=== PATIENT | female | born 1980 | race Two or more races ===

== ENCOUNTER 2021-10-26 13:47 | Emergency (ER) | payer MEDICAID ==
[2021-10-26] MEDS ORDERED: Morphine 4 MG/ML VIAL IVPUSH ONE (14:04)
[2021-10-26] MEDS ORDERED: Ondansetron 4 MG/2 ML SDV IVPUSH ONE (14:04)
[2021-10-26] MEDS ORDERED: Sodium Chloride 0.9% 1,000 ML IV ONE (14:04)
[2021-10-26] MEDS ORDERED: Famotidine 20 MG/2 ML SDV IVPUSH ONE (14:04)
[2021-10-26] MEDS ORDERED: Alum Hydro/Mag Hydro/Simeth XS 15 ML, Lidocaine 2% 5 ML PO ONE ×2 (14:06)
[2021-10-26 14:29] LABS: CARBON DIOXIDE,CO2 24.7 mmol/L (21.0-32.0); POTASSIUM,K 4.1 mmol/L (3.5-5.1)
== END 2021-10-26 15:34 | disposition home or self-care (01) ==
LOC: MW.ED 13:47
DX: R10.13 Epigastric pain (principal); E11.9 Type 2 diabetes mellitus without complications; I10 Essential (primary) hypertension; E78.00 Pure hypercholesterolemia, unspecified; E66.9 Obesity, unspecified; Z68.41 Body mass index [BMI] 40.0-44.9, adult; Z88.0 Allergy status to penicillin; Z86.16 Personal history of COVID-19
CPT/HCPCS: 36415; 80053; 82009; 82947; 83605; 83690; 83735; 84484; 84703; 85025; 93005; 96361; 96374; 96375; 99284; A9270; J2270; J2405; J3490; J7030

== ENCOUNTER 2021-10-29 13:03 | Emergency (ER) | payer MEDICAID ==
[2021-10-29] MEDS: Alum Hydro/Mag Hydro/Simeth XS 15 ML, Metoclopramide 5 MG, Lidocaine 2% 5 ML PO ONE ×3 (13:49)
[2021-10-29] MEDS: Famotidine 20 MG Tab PO ONE (13:49)
[2021-10-29] MEDS: Dicyclomine 10 MG Cap PO ONE (13:49)
[2021-10-29 14:40] LABS: CARBON DIOXIDE,CO2 26.4 mmol/L (21.0-32.0); POTASSIUM,K 4.8 mmol/L (3.5-5.1)
[2021-10-29] MEDS: Haloperidol Lactate 5 MG/ML SDV IM ONE (14:47)
== END 2021-10-29 15:48 | disposition home or self-care (01) ==
LOC: MW.ED 13:03
DX: R10.13 Epigastric pain (principal); E78.00 Pure hypercholesterolemia, unspecified; I10 Essential (primary) hypertension; E11.9 Type 2 diabetes mellitus without complications; Z88.0 Allergy status to penicillin; Z79.899 Other long term (current) drug therapy; Z86.16 Personal history of COVID-19
CPT/HCPCS: 36415; 80053; 83690; 84703; 85025; 96372; 99284; A9270; J1630; 99283

== ENCOUNTER 2022-03-02 12:08 | Emergency (ER) | payer MEDICAID ==
[2022-03-02] MEDS ORDERED: Ketorolac 60 MG/2 ML SDV IM ONE (13:02)
== END 2022-03-02 13:27 | disposition home or self-care (01) ==
LOC: MW.ED 12:08
DX: M72.2 Plantar fascial fibromatosis (principal); I10 Essential (primary) hypertension; E11.9 Type 2 diabetes mellitus without complications; Z88.0 Allergy status to penicillin; Z79.899 Other long term (current) drug therapy; Z90.49 Acquired absence of other specified parts of digestive tract
CPT/HCPCS: 96372; 99283; J1885

== ENCOUNTER 2022-03-09 05:30 | Emergency (ER) | payer MEDICAID ==
[2022-03-09] MEDS ORDERED: Sodium Chloride 0.9% 1,000 ML IV ONE (05:41)
[2022-03-09] MEDS ORDERED: Ondansetron 4 MG/2 ML SDV IVPUSH ONE (05:58)
[2022-03-09] MEDS ORDERED: Morphine 4 MG/ML Syringe IVPUSH ONE (05:58)
[2022-03-09] MEDS ORDERED: Ondansetron 4 MG/2 ML SDV ONE (05:59)
[2022-03-09] MEDS ORDERED: Morphine 4 MG/ML Syringe ONE (05:59)
[2022-03-09] MEDS ORDERED: Alum Hydro/Mag Hydro/Simeth XS 15 ML, Metoclopramide 5 MG, Lidocaine 2% 5 ML PO ONE ×3 (06:34)
[2022-03-09] MEDS ORDERED: Pantoprazole 40 MG Tab.CR PO STA (06:34)
[2022-03-09 06:54] LABS: CARBON DIOXIDE,CO2 25.6 mmol/L (21.0-32.0); POTASSIUM,K 3.8 mmol/L (3.5-5.1)
[2022-03-09 07:06] LABS: CORONAVIRUS COVID-19 NAA POSITIVE (NEGATIVE); INFLUENZA A NAA NEGATIVE (NEGATIVE); INFLUENZA B NAA NEGATIVE (NEGATIVE); RESPIRATORY SYNCYTIAL VIR NAA NEGATIVE (NEGATIVE)
[2022-03-09] MEDS ORDERED: Lisinopril 10 MG Tab PO ONE (07:39)
== END 2022-03-09 08:05 | disposition home or self-care (01) ==
LOC: MW.ED 05:30
DX: K29.70 Gastritis, unspecified, without bleeding (principal); I10 Essential (primary) hypertension; E78.00 Pure hypercholesterolemia, unspecified; E11.9 Type 2 diabetes mellitus without complications; Z86.16 Personal history of COVID-19; Z88.0 Allergy status to penicillin; Z79.899 Other long term (current) drug therapy; Z20.822 Contact with and (suspected) exposure to COVID-19
CPT/HCPCS: 0241U; 36415; 80053; 83605; 83690; 84703; 85025; 96361; 96374; 96375; 99284; A9270; J2270; J2405; J7030

== ENCOUNTER 2022-06-24 03:40 | Emergency (ER) | payer OTHER, MEDICAID ==
[2022-06-24] MEDS ORDERED: Sodium Chloride 0.9% 10 ML Syringe FLUSH PRN (04:37)
[2022-06-24] MEDS ORDERED: Sodium Chloride 0.9% 2.5 ML Syringe FLUSH PRN (04:37)
[2022-06-24] MEDS ORDERED: Sodium Chloride 0.9% 1,000 ML IV ONE (05:01)
[2022-06-24] MEDS ORDERED: Metoclopramide 10 MG/2 ML SDV IVPUSH ONE (05:01)
[2022-06-24 05:35] LABS: CARBON DIOXIDE,CO2 24.5 mmol/L (21.0-32.0); POTASSIUM,K 4.8 mmol/L (3.5-5.1)
== END 2022-06-24 06:30 | disposition home or self-care (01) ==
LOC: MW.ED 03:40
DX: R11.10 Vomiting, unspecified (principal); R19.7 Diarrhea, unspecified; R10.9 Unspecified abdominal pain; E78.00 Pure hypercholesterolemia, unspecified; I10 Essential (primary) hypertension; J45.909 Unspecified asthma, uncomplicated; E11.9 Type 2 diabetes mellitus without complications; Z86.16 Personal history of COVID-19; Z88.0 Allergy status to penicillin; Z79.899 Other long term (current) drug therapy; Z90.49 Acquired absence of other specified parts of digestive tract; Z98.890 Other specified postprocedural states
CPT/HCPCS: 36415; 80053; 80305; 81001; 81025; 83690; 85025; 96361; 96374; 99284; J2765; J7030; 99283

== ENCOUNTER 2022-06-24 08:44 | Emergency (ER) | payer OTHER, MEDICAID ==
[2022-06-24] MEDS ORDERED: Sodium Chloride 0.9% 1,000 ML IV ONE (09:20)
[2022-06-24] MEDS ORDERED: Haloperidol Lactate 5 MG/ML SDV IM ONE (09:20)
[2022-06-24] MEDS ORDERED: Famotidine 20 MG/2 ML SDV IVPUSH ONE (09:23)
[2022-06-24] MEDS ORDERED: Alum Hydro/Mag Hydro/Simeth XS 15 ML, Lidocaine 2% 5 ML PO ONE ×2 (10:26)
[2022-06-24] MEDS ORDERED: Iopamidol 755 MG/ML 500 ML Multipack Bottle IVPUSH STA (10:27)
[2022-06-24] MEDS ORDERED: Morphine 4 MG/ML Syringe IVPUSH ONE (10:36)
[2022-06-24 11:46] LABS: HEMOGLOBIN A1C 8.8 %
[2022-06-24 11:57] LABS: CARBON DIOXIDE,CO2 24.4 mmol/L (21.0-32.0); POTASSIUM,K 4.3 mmol/L (3.5-5.1)
== END 2022-06-24 12:35 | disposition home or self-care (01) ==
LOC: MW.ED 08:44
DX: E11.9 Type 2 diabetes mellitus without complications (principal); I10 Essential (primary) hypertension; J45.909 Unspecified asthma, uncomplicated; E78.00 Pure hypercholesterolemia, unspecified; E66.9 Obesity, unspecified; Z68.42 Body mass index [BMI] 45.0-49.9, adult; Z86.16 Personal history of COVID-19; Z79.84 Long term (current) use of oral hypoglycemic drugs; Z79.899 Other long term (current) drug therapy; Z88.0 Allergy status to penicillin; Z90.49 Acquired absence of other specified parts of digestive tract; Z98.890 Other specified postprocedural states
CPT/HCPCS: 36415; 74177; 80053; 80305; 81001; 81025; 82009; 83036; 83690; 83735; 85025; 93005; 96361; 96372; 96374; 96375; 99284; 99285; A9270; J1630; J2270; J2765; J3490; J7030; Q9967; 93010; 99283

== ENCOUNTER 2022-09-27 22:02 | Emergency (ER) | payer OTHER, MEDICAID | END 2022-09-27 22:30 | disposition left against medical advice (07) | LOC: MW.ED 22:02 | DX: Z53.21 Procedure and treatment not carried out due to patient leaving prior to being seen by health care provider (principal) ==

== ENCOUNTER 2022-11-06 02:28 | Emergency (ER) | payer MEDICAID, OTHER ==
[2022-11-06] MEDS ORDERED: Morphine 4 MG/ML Syringe IVPUSH ONE ×2 (02:39→03:14)
[2022-11-06] MEDS ORDERED: Ondansetron 4 MG/2 ML SDV IVPUSH ONE (02:39)
[2022-11-06] MEDS ORDERED: Iopamidol 755 MG/ML 500 ML Multipack Bottle IVPUSH ONE (02:46)
[2022-11-06 02:53] LABS: BASOPHILS PERCENT AUTO 0.3 % (0.0-1.5); EOSINOPHILS ABSOLUTE AUTO 0.3 K/uL (0.0-0.7); EOSINOPHILS PERCENT AUTO 3.6 % (0.0-7.0); HEMATOCRIT 44.2 % (36.0-46.0); HEMOGLOBIN 14.6 g/dL (12.0-16.0); LYMPHOCYTES ABSOLUTE AUTO 1.7 K/uL (0.6-2.4); LYMPHOCYTES PERCENT AUTO 24.9 % (16.0-40.0); MEAN CORPUSCULAR HEMOGLOBIN 26.5 pg (27.0-32.0); MEAN CORPUSCULAR VOLUME 80.2 fL (80.0-98.0); MONOCYTES ABSOLUTE AUTO 0.4 K/uL (0.0-0.8); NEUTROPHILS ABSOLUTE AUTO 4.6 K/uL (1.4-5.7); NEUTROPHILS PERCENT AUTO 66.2 % (48.0-80.0); NRBC ABSOLUTE 0 K/uL; RED BLOOD CELL COUNT 5.51 M/uL (4.30-5.90); WHITE BLOOD CELL COUNT,WBC 6.96 K/uL (4.0-11.0)
[2022-11-06] MEDS ORDERED: Metoclopramide 10 MG/2 ML SDV IVPUSH ONE (03:14)
[2022-11-06 03:18] LABS: A/G RATIO 0.9 (0.9-1.6); BILIRUBIN TOTAL 0.5 mg/dL (0.2-1.0); CALCIUM 9.2 mg/dL (8.5-10.1); CARBON DIOXIDE,CO2 25.8 mmol/L (21.0-32.0); CREATININE 0.7 mg/dL (0.6-1.0); EST CRCL DRUG DOSING (CG) 93.25 mL/min; POTASSIUM,K 4.6 mmol/L (3.5-5.1); PROTEIN TOTAL,TP 8.6 g/dL (6.4-8.2)
[2022-11-06 03:27] LABS: PLATELET COUNT,PLT 139 K/uL (150-400)
[2022-11-06] MEDS ORDERED: droPERidol 5 MG/2 ML SDV IVPUSH ONE (04:40)
== END 2022-11-06 06:09 | disposition home or self-care (01) ==
LOC: MW.ED 02:28
DX: R10.11 Right upper quadrant pain (principal); R11.2 Nausea with vomiting, unspecified; I10 Essential (primary) hypertension; J45.909 Unspecified asthma, uncomplicated; E11.9 Type 2 diabetes mellitus without complications; Z88.6 Allergy status to analgesic agent; Z88.0 Allergy status to penicillin; Z86.16 Personal history of COVID-19
CPT/HCPCS: 36415; 74177; 80053; 83690; 85025; 96374; 96375; 96376; 99284; J1790; J2270; J2405; J2765; Q9967

== ENCOUNTER 2023-03-20 13:39 | Emergency (ER) | payer MEDICAID ==
[2023-03-20] MEDS ORDERED: Sodium Chloride 0.9% 1,000 ML IV ONE (13:50)
[2023-03-20 14:25] LABS: BASOPHILS ABSOLUTE AUTO 0.06 K/uL (0.00-0.20); BASOPHILS PERCENT AUTO 0.6 % (0.0-1.0); EOSINOPHILS ABSOLUTE AUTO 0.09 K/uL (0.00-0.45); EOSINOPHILS PERCENT AUTO 0.9 % (0.0-6.0); HEMATOCRIT 44.1 % (37.0-47.0); HEMOGLOBIN 14.5 g/dL (12.0-16.0); IMMATURE GRAN ABSOLUTE AUTO 0.08 K/uL (0.00-0.05); IMMATURE GRAN PERCENT AUTO 0.8 % (0.0-0.4); LYMPHOCYTES ABSOLUTE AUTO 1.39 K/uL (1.00-4.80); LYMPHOCYTES PERCENT AUTO 13.4 % (24.0-44.0); MEAN CORPUSCULAR HEMOGLOBIN 26.7 pg (28.0-32.0); MEAN CORPUSCULAR HGB CONC 32.9 g/dL (32.0-36.0); MEAN CORPUSCULAR VOLUME 81.1 fL (83.0-99.0); MEAN PLATELET VOLUME 9.3 fL (9.4-12.3); MONOCYTES ABSOLUTE AUTO 0.34 K/uL (0.00-0.80); MONOCYTES PERCENT AUTO 3.3 % (0.0-8.0); PLATELET COUNT,PLT 355 K/uL (150-400); RED BLOOD CELL COUNT 5.44 M/uL (4.10-5.30); WHITE BLOOD CELL COUNT,WBC 10.36 K/uL (3.9-11.3)
[2023-03-20 14:44] LABS: A/G RATIO 0.8 (0.9-1.6); ALBUMIN 3.7 g/dL (3.4-5.0); BILIRUBIN TOTAL 0.2 mg/dL (0.2-1.0); CALCIUM 8.7 mg/dL (8.5-10.1); CREATININE 0.8 mg/dL (0.6-1.0); EST CRCL DRUG DOSING (CG) 80.75 mL/min; POTASSIUM,K 3.6 mmol/L (3.5-5.1); PROTEIN TOTAL,TP 8.2 g/dL (6.4-8.2)
[2023-03-20] MEDS ORDERED: Ondansetron 4 MG/2 ML SDV IVPUSH ONE (16:04)
[2023-03-20] MEDS ORDERED: Acetaminophen 500 MG Tab PO ONE (16:05)
[2023-03-20 16:08] LABS: APPEARANCE,URINE CLEAR; BILIRUBIN,URINE NEGATIVE (NEGATIVE); COLOR,URINE YELLOW; GLUCOSE,URINE 500 mg/dL (NEGATIVE); KETONES,URINE NEGATIVE (NEGATIVE); LEUKOCYTE ESTERASE,URINE NEGATIVE (NEGATIVE); NITRITE,URINE NEGATIVE (NEGATIVE); OCCULT BLOOD,URINE NEGATIVE (NEGATIVE); PROTEIN,URINE 30 mg/dL (NEGATIVE); UROBILINOGEN,URINE 0.2 EU/dL (<2.0)
[2023-03-20 16:23] LABS: BACTERIA,URINE RARE (NEGATIVE); EPITHELIAL CELLS,URINE RARE (NONE-FEW); MUCUS,URINE FEW (NONE-MOD); RBC,URINE 0-1 (0-2/HPF); WBC,URINE 0-2 (0-5/HPF)
== END 2023-03-20 16:40 | disposition home or self-care (01) ==
LOC: MW.ED 13:39
DX: R10.31 Right lower quadrant pain (principal); F41.9 Anxiety disorder, unspecified; Z91.048 Other nonmedicinal substance allergy status; I10 Essential (primary) hypertension; E78.00 Pure hypercholesterolemia, unspecified; J45.909 Unspecified asthma, uncomplicated; E11.9 Type 2 diabetes mellitus without complications; Z90.49 Acquired absence of other specified parts of digestive tract; Z86.16 Personal history of COVID-19; Z79.84 Long term (current) use of oral hypoglycemic drugs; Z79.899 Other long term (current) drug therapy; Z88.0 Allergy status to penicillin; Z88.5 Allergy status to narcotic agent
CPT/HCPCS: 36415; 80053; 81001; 83690; 85025; 96361; 96374; 99284; A9270; J2405; J7030

== ENCOUNTER 2023-07-16 09:11 | Emergency (ER) | payer SELFPAY ==
[2023-07-16 09:32] LABS: BASOPHILS ABSOLUTE AUTO 0.02 K/uL (0.00-0.20); BASOPHILS PERCENT AUTO 0.4 % (0.0-1.0); EOSINOPHILS ABSOLUTE AUTO 0.01 K/uL (0.00-0.45); EOSINOPHILS PERCENT AUTO 0.2 % (0.0-6.0); HEMATOCRIT 48.9 % (37.0-47.0); HEMOGLOBIN 17.1 g/dL (12.0-16.0); IMMATURE GRAN ABSOLUTE AUTO 0.03 K/uL (0.00-0.05); IMMATURE GRAN PERCENT AUTO 0.6 % (0.0-0.4); LYMPHOCYTES PERCENT AUTO 26.9 % (24.0-44.0); MEAN CORPUSCULAR HEMOGLOBIN 27.8 pg (28.0-32.0); MEAN CORPUSCULAR VOLUME 79.5 fL (83.0-99.0); MEAN PLATELET VOLUME 9.7 fL (9.4-12.3); MONOCYTES ABSOLUTE AUTO 0.66 K/uL (0.00-0.80); MONOCYTES PERCENT AUTO 13.7 % (0.0-8.0); NEUTROPHILS ABSOLUTE AUTO 2.81 K/uL (1.80-7.70); NEUTROPHILS PERCENT AUTO 58.2 % (41.0-71.0); PLATELET COUNT,PLT 265 K/uL (150-400); RED BLOOD CELL COUNT 6.15 M/uL (4.10-5.30); WHITE BLOOD CELL COUNT,WBC 4.83 K/uL (3.9-11.3)
[2023-07-16] MEDS: Sodium Chloride 0.9% 1,000 ML IV STA ×2 (09:37→14:19)
[2023-07-16] MEDS: Sodium Chloride 0.9% 2.5 ML Syringe FLUSH PRN (09:38)
[2023-07-16] MEDS: Sodium Chloride 0.9% 10 ML Syringe FLUSH PRN (09:38)
[2023-07-16] MEDS: Haloperidol Lactate 5 MG/ML SDV IM ONE (09:38)
[2023-07-16 10:00] LABS: A/G RATIO 0.7 (0.9-1.6); ALBUMIN 3.6 g/dL (3.4-5.0); BILIRUBIN TOTAL 0.3 mg/dL (0.2-1.0); CALCIUM 8.9 mg/dL (8.5-10.1); CARBON DIOXIDE,CO2 19.5 mmol/L (21.0-32.0); CREATININE 1.1 mg/dL (0.6-1.0); EST CRCL DRUG DOSING (CG) 58.73 mL/min; POTASSIUM,K 3.6 mmol/L (3.5-5.1); PROTEIN TOTAL,TP 8.5 g/dL (6.4-8.2)
[2023-07-16 10:13] LABS: LACTIC ACID 2.3 mmol/L (0.4-2.0)
[2023-07-16 10:44] LABS: APPEARANCE,URINE CLEAR; BILIRUBIN,URINE NEGATIVE (NEGATIVE); COLOR,URINE YELLOW; GLUCOSE,URINE 500 mg/dL (NEGATIVE); KETONES,URINE 40 mg/dL (NEGATIVE); LEUKOCYTE ESTERASE,URINE NEGATIVE (NEGATIVE); NITRITE,URINE NEGATIVE (NEGATIVE); OCCULT BLOOD,URINE TRACE-INTACT (NEGATIVE); PH,URINE 7.5 (5.0-8.0); PROTEIN,URINE 100 mg/dL (NEGATIVE); UROBILINOGEN,URINE 0.2 EU/dL (<2.0)
[2023-07-16 11:06] LABS: BACTERIA,URINE RARE (NEGATIVE); EPITHELIAL CELLS,URINE FEW (NONE-FEW); RBC,URINE 0-2 (0-2/HPF)
[2023-07-16] MEDS: Metoclopramide 10 MG/2 ML SDV IVPUSH ONE (11:18)
[2023-07-16] MEDS ORDERED: Acetaminophen 325 MG Tab PO ONE (11:37)
[2023-07-16] MEDS: Acetaminophen 500 MG Tab PO ONE (11:49)
[2023-07-16] MEDS: Midazolam 5 MG/ML SDV IVPUSH ONE (12:03)
[2023-07-16] MEDS: Lisinopril 10 MG Tab PO ONE (12:33)
[2023-07-16 13:02] LABS: BASE EXCESS VENOUS -1.9 (-2.0-3.0); PH,VENOUS 7.43 (7.31-7.41)
[2023-07-16 14:22] LABS: CALCIUM 8.5 mg/dL (8.5-10.1); CARBON DIOXIDE,CO2 18.8 mmol/L (21.0-32.0); CREATININE 0.9 mg/dL (0.6-1.0); EST CRCL DRUG DOSING (CG) 71.78 mL/min; POTASSIUM,K 3.3 mmol/L (3.5-5.1)
[2023-07-16] MEDS: Potassium Chloride 20 MEQ Tab.ER PO ONE (14:53)
== END 2023-07-16 15:00 | disposition home or self-care (01) ==
LOC: MW.ED 09:11
DX: R11.2 Nausea with vomiting, unspecified (principal); R19.7 Diarrhea, unspecified; R10.84 Generalized abdominal pain; I10 Essential (primary) hypertension; E11.9 Type 2 diabetes mellitus without complications; Z79.84 Long term (current) use of oral hypoglycemic drugs; Z79.899 Other long term (current) drug therapy; Z88.0 Allergy status to penicillin; Z88.8 Allergy status to other drugs, medicaments and biological substances; Z75.8 Other problems related to medical facilities and other health care
CPT/HCPCS: 36415; 80048; 80053; 81001; 81025; 82803; 83605; 83690; 84484; 84703; 85025; 93005; 96361; 96372; 96374; 99284; A9270; J1630; J2765; J3490; J7030; 93010

== ENCOUNTER 2023-08-30 07:22 | Emergency (ER) | payer SELFPAY | END 2023-08-30 07:31 | disposition left against medical advice (07) | LOC: MW.ED 07:22 | DX: Z53.21 Procedure and treatment not carried out due to patient leaving prior to being seen by health care provider (principal) ==

== ENCOUNTER 2023-08-31 07:23 | Emergency (ER) | payer SELFPAY ==
[2023-08-31 07:45] LABS: BILIRUBIN,URINE NEGATIVE (NEGATIVE); COLOR,URINE YELLOW; GLUCOSE,URINE 500 mg/dL (NEGATIVE); KETONES,URINE NEGATIVE (NEGATIVE); LEUKOCYTE ESTERASE,URINE NEGATIVE (NEGATIVE); NITRITE,URINE NEGATIVE (NEGATIVE); OCCULT BLOOD,URINE NEGATIVE (NEGATIVE); PH,URINE 7.5 (5.0-8.0); PROTEIN,URINE 30 mg/dL (NEGATIVE); UROBILINOGEN,URINE 0.2 EU/dL (<2.0)
[2023-08-31 07:52] LABS: APPEARANCE,URINE HAZY
[2023-08-31] MEDS: Sodium Chloride 0.9% 10 ML Syringe FLUSH PRN (07:52)
[2023-08-31] MEDS: Haloperidol Lactate 5 MG/ML SDV IM ONE (07:52)
[2023-08-31] MEDS: Sodium Chloride 0.9% 1,000 ML IV STA ×2 (07:52→10:55)
[2023-08-31] MEDS: Sodium Chloride 0.9% 2.5 ML Syringe FLUSH PRN (07:52)
[2023-08-31 07:54] LABS: BACTERIA,URINE FEW (NEGATIVE); EPITHELIAL CELLS,URINE FEW (NONE-FEW); RBC,URINE 0-2 (0-2/HPF); WBC,URINE 0-1 (0-5/HPF)
[2023-08-31] MEDS: Ketorolac 30 MG/ML SDV IVPUSH ONE (08:08)
[2023-08-31 08:13] LABS: BASOPHILS ABSOLUTE AUTO 0.03 K/uL (0.00-0.20); BASOPHILS PERCENT AUTO 0.3 % (0.0-1.0); EOSINOPHILS PERCENT AUTO 1.8 % (0.0-6.0); HEMATOCRIT 46.8 % (37.0-47.0); HEMOGLOBIN 15.7 g/dL (12.0-16.0); IMMATURE GRAN ABSOLUTE AUTO 0.04 K/uL (0.00-0.05); IMMATURE GRAN PERCENT AUTO 0.4 % (0.0-0.4); LYMPHOCYTES ABSOLUTE AUTO 2.77 K/uL (1.00-4.80); LYMPHOCYTES PERCENT AUTO 24.5 % (24.0-44.0); MEAN CORPUSCULAR HEMOGLOBIN 27.5 pg (28.0-32.0); MEAN CORPUSCULAR HGB CONC 33.5 g/dL (32.0-36.0); MEAN CORPUSCULAR VOLUME 82.1 fL (83.0-99.0); MEAN PLATELET VOLUME 9.4 fL (9.4-12.3); MONOCYTES ABSOLUTE AUTO 0.64 K/uL (0.00-0.80); MONOCYTES PERCENT AUTO 5.7 % (0.0-8.0); NEUTROPHILS ABSOLUTE AUTO 7.64 K/uL (1.80-7.70); NEUTROPHILS PERCENT AUTO 67.3 % (41.0-71.0); PLATELET COUNT,PLT 347 K/uL (150-400); WHITE BLOOD CELL COUNT,WBC 11.32 K/uL (3.9-11.3)
[2023-08-31 08:46] LABS: A/G RATIO 0.8 (0.9-1.6); ALANINE AMINOTRANSFERASE,ALT 38 IU/L (14-63); ALKALINE PHOSPHATASE 113 U/L (46-116); ASPARTATE AMNIOTRANSFERASE,AST 30 IU/L (15-37); BILIRUBIN TOTAL 0.4 mg/dL (0.2-1.0); BLOOD UREA NITROGEN,BUN 8 mg/dL (7.0-18.0); CARBON DIOXIDE,CO2 25.6 mmol/L (21.0-32.0); CHLORIDE,CL 98 mmol/L (98-107); CREATININE 0.9 mg/dL (0.6-1.0); EST CRCL DRUG DOSING (CG) 71.78 mL/min; ESTIMATED GFR 81 mL/min (>60); GLUCOSE RANDOM 263 mg/dL (74-106); HCG QUANTITATIVE < 1.0 mIU/mL; LIPASE 47 U/L (16-77); POTASSIUM,K 3.6 mmol/L (3.5-5.1); PROTEIN TOTAL,TP 8.8 g/dL (6.4-8.2); SODIUM,NA 137 mmol/L (136-145)
[2023-08-31] MEDS: Prochlorperazine 10 MG/2 ML SDV IVPUSH ONE (09:34)
[2023-08-31] MEDS: Iopamidol 755 MG/ML 500 ML Multipack Bottle IVPUSH STA (09:42)
[2023-08-31 11:02] LABS: BASE EXCESS VENOUS 1.3 (-2.0-3.0); PH,VENOUS 7.41 (7.31-7.41)
[2023-08-31 11:20] LABS: CALCIUM 9.3 mg/dL (8.5-10.1); CARBON DIOXIDE,CO2 26.2 mmol/L (21.0-32.0); CREATININE 0.8 mg/dL (0.6-1.0); EST CRCL DRUG DOSING (CG) 80.75 mL/min; POTASSIUM,K 3.4 mmol/L (3.5-5.1)
[2023-08-31] MEDS: Lisinopril 10 MG Tab PO ONE (11:55)
[2023-08-31] MEDS: hydrALAZINE 20 MG/ML SDV IVPUSH ONE (13:14)
== END 2023-08-31 13:12 | disposition home or self-care (01) ==
LOC: MW.ED 07:23
DX: I10 Essential (primary) hypertension (principal); E11.9 Type 2 diabetes mellitus without complications; E78.00 Pure hypercholesterolemia, unspecified; Z75.8 Other problems related to medical facilities and other health care; Z90.49 Acquired absence of other specified parts of digestive tract; Z79.84 Long term (current) use of oral hypoglycemic drugs; Z79.899 Other long term (current) drug therapy; Z88.0 Allergy status to penicillin; Z88.8 Allergy status to other drugs, medicaments and biological substances
CPT/HCPCS: 36415; 74177; 80048; 80053; 81001; 82803; 83690; 84702; 85025; 93005; 96361; 96372; 96374; 96375; 99284; A9270; J0780; J1630; J1885; J3490; J7030; Q9967; 93010

== ENCOUNTER 2023-11-23 14:08 | Emergency (ER) | payer MEDICAID, OTHER ==
[2023-11-23] MEDS ORDERED: Sodium Chloride 0.9% 2.5 ML Syringe FLUSH PRN (15:05)
[2023-11-23] MEDS ORDERED: Sodium Chloride 0.9% 10 ML Syringe FLUSH PRN (15:05)
[2023-11-23] MEDS: Sodium Chloride 0.9% 1,000 ML IV ONE (15:27)
[2023-11-23] MEDS: Famotidine 20 MG/2 ML SDV IVPUSH ONE (15:28)
[2023-11-23] MEDS: droPERidol 5 MG/2 ML SDV IVPUSH ONE (15:31)
[2023-11-23] MEDS: HYDROmorphone 1 MG/ML Syringe IVPUSH ONE (15:32)
[2023-11-23 15:34] LABS: BASOPHILS ABSOLUTE AUTO 0.05 K/uL (0.00-0.20); BASOPHILS PERCENT AUTO 0.3 % (0.0-1.0); EOSINOPHILS ABSOLUTE AUTO 0.02 K/uL (0.00-0.45); EOSINOPHILS PERCENT AUTO 0.1 % (0.0-6.0); HEMATOCRIT 45.8 % (37.0-47.0); HEMOGLOBIN 15.5 g/dL (12.0-16.0); IMMATURE GRAN ABSOLUTE AUTO 0.11 K/uL (0.00-0.05); IMMATURE GRAN PERCENT AUTO 0.7 % (0.0-0.4); LYMPHOCYTES ABSOLUTE AUTO 1.91 K/uL (1.00-4.80); LYMPHOCYTES PERCENT AUTO 12.2 % (24.0-44.0); MEAN CORPUSCULAR HEMOGLOBIN 27.2 pg (28.0-32.0); MEAN CORPUSCULAR HGB CONC 33.8 g/dL (32.0-36.0); MEAN CORPUSCULAR VOLUME 80.5 fL (83.0-99.0); MEAN PLATELET VOLUME 9.4 fL (9.4-12.3); MONOCYTES PERCENT AUTO 2.5 % (0.0-8.0); NEUTROPHILS ABSOLUTE AUTO 13.23 K/uL (1.80-7.70); NEUTROPHILS PERCENT AUTO 84.2 % (41.0-71.0); PLATELET COUNT,PLT 388 K/uL (150-400); RED BLOOD CELL COUNT 5.69 M/uL (4.10-5.30); WHITE BLOOD CELL COUNT,WBC 15.72 K/uL (3.9-11.3)
[2023-11-23] MEDS: droPERidol 5 MG/2 ML SDV ONE (15:39)
[2023-11-23 16:04] LABS: A/G RATIO 0.9 (0.9-1.6); ALBUMIN 4.2 g/dL (3.4-5.0); BILIRUBIN TOTAL 0.4 mg/dL (0.2-1.0); CALCIUM 10.3 mg/dL (8.5-10.1); CARBON DIOXIDE,CO2 23.4 mmol/L (21.0-32.0); CREATININE 0.9 mg/dL (0.6-1.0); EST CRCL DRUG DOSING (CG) 71.78 mL/min; POTASSIUM,K 4.6 mmol/L (3.5-5.1); PROTEIN TOTAL,TP 8.9 g/dL (6.4-8.2)
[2023-11-23] MEDS ORDERED: Glucagon,Human Recombinant 1 MG Vial IM PRN (17:34)
[2023-11-23] MEDS ORDERED: 50% Dextrose in Water 50 ML Syringe IVPUSH PRN (17:34)
[2023-11-23] MEDS: Ondansetron 4 MG/2 ML SDV IVPUSH ONE (17:39)
[2023-11-23] MEDS: Lisinopril 10 MG Tab PO ONE (17:40)
[2023-11-23] MEDS: Insulin Regular, Human 100 Units/ML 10 ML Vial SUBCUT ONE (17:48)
[2023-11-23] MEDS: Metoclopramide 10 MG/2 ML SDV IVPUSH ONE (18:07)
== END 2023-11-23 18:22 | disposition home or self-care (01) ==
LOC: MW.ED 14:08
DX: R51.9 Headache, unspecified (principal); R11.2 Nausea with vomiting, unspecified; I10 Essential (primary) hypertension; E11.65 Type 2 diabetes mellitus with hyperglycemia; Z90.49 Acquired absence of other specified parts of digestive tract; Z79.4 Long term (current) use of insulin; Z79.899 Other long term (current) drug therapy; Z88.8 Allergy status to other drugs, medicaments and biological substances; Z88.0 Allergy status to penicillin
CPT/HCPCS: 36415; 80053; 82947; 83690; 84703; 85025; 96361; 96374; 96375; 99284; A9270; J1170; J1790; J1815; J2405; J3490; J7030

== ENCOUNTER 2023-11-25 21:24 | Emergency (ER) | payer SELFPAY ==
[2023-11-25 21:59] LABS: BASOPHILS ABSOLUTE AUTO 0.05 K/uL (0.00-0.20); BASOPHILS PERCENT AUTO 0.3 % (0.0-1.0); EOSINOPHILS ABSOLUTE AUTO 0.03 K/uL (0.00-0.45); EOSINOPHILS PERCENT AUTO 0.2 % (0.0-6.0); HEMATOCRIT 44.5 % (37.0-47.0); HEMOGLOBIN 15.2 g/dL (12.0-16.0); IMMATURE GRAN ABSOLUTE AUTO 0.07 K/uL (0.00-0.05); IMMATURE GRAN PERCENT AUTO 0.4 % (0.0-0.4); LYMPHOCYTES ABSOLUTE AUTO 2.12 K/uL (1.00-4.80); LYMPHOCYTES PERCENT AUTO 13.5 % (24.0-44.0); MEAN CORPUSCULAR HEMOGLOBIN 27.4 pg (28.0-32.0); MEAN CORPUSCULAR HGB CONC 34.2 g/dL (32.0-36.0); MEAN CORPUSCULAR VOLUME 80.3 fL (83.0-99.0); MEAN PLATELET VOLUME 9.5 fL (9.4-12.3); MONOCYTES ABSOLUTE AUTO 0.95 K/uL (0.00-0.80); NEUTROPHILS ABSOLUTE AUTO 12.52 K/uL (1.80-7.70); NEUTROPHILS PERCENT AUTO 79.6 % (41.0-71.0); PLATELET COUNT,PLT 379 K/uL (150-400); RED BLOOD CELL COUNT 5.54 M/uL (4.10-5.30); WHITE BLOOD CELL COUNT,WBC 15.74 K/uL (3.9-11.3)
[2023-11-25] MEDS: Sodium Chloride 0.9% 1,000 ML IV ONE (22:04)
[2023-11-25] MEDS: Metoclopramide 10 MG/2 ML SDV IVPUSH ONE (22:04)
[2023-11-25 22:19] LABS: A/G RATIO 0.9 (0.9-1.6); ALBUMIN 4.2 g/dL (3.4-5.0); BILIRUBIN TOTAL 0.6 mg/dL (0.2-1.0); CALCIUM 9.5 mg/dL (8.5-10.1); CARBON DIOXIDE,CO2 23.2 mmol/L (21.0-32.0); CREATININE 1.4 mg/dL (0.6-1.0); EST CRCL DRUG DOSING (CG) 46.14 mL/min; POTASSIUM,K 3.5 mmol/L (3.5-5.1); PROTEIN TOTAL,TP 8.7 g/dL (6.4-8.2)
[2023-11-25] MEDS: Codeine/guaiFENesin 10-100 MG/5 ML Syrup 5 ML Cup PO ONE (22:54)
== END 2023-11-26 00:13 | disposition home or self-care (01) ==
LOC: MW.ED 21:24
DX: R10.84 Generalized abdominal pain (principal); R11.2 Nausea with vomiting, unspecified; R05.1 Acute cough; I10 Essential (primary) hypertension; E11.9 Type 2 diabetes mellitus without complications; Z90.49 Acquired absence of other specified parts of digestive tract; Z79.4 Long term (current) use of insulin; Z88.0 Allergy status to penicillin; Z88.6 Allergy status to analgesic agent
CPT/HCPCS: 36415; 80053; 85025; 96361; 96374; 99284; A9270; J2765; J7030

== ENCOUNTER 2024-01-09 10:10 | Emergency (ER) | payer SELFPAY ==
[2024-01-09] MEDS ORDERED: Sodium Chloride 0.9% 10 ML Syringe FLUSH PRN (10:27)
[2024-01-09] MEDS ORDERED: Sodium Chloride 0.9% 2.5 ML Syringe FLUSH PRN (10:27)
[2024-01-09] MEDS: droPERidol 5 MG/2 ML SDV IVPUSH STA (10:51)
[2024-01-09] MEDS: Sodium Chloride 0.9% 1,000 ML IV STA ×2 (10:51→11:43)
[2024-01-09] MEDS: Lisinopril 10 MG Tab PO STA ×2 (10:54→12:47)
[2024-01-09 10:59] LABS: BASE EXCESS VENOUS -2.3 (-2.0-3.0); PH,VENOUS 7.5 (7.31-7.41)
[2024-01-09 11:02] LABS: BASOPHILS ABSOLUTE AUTO 0.06 K/uL (0.00-0.20); BASOPHILS PERCENT AUTO 0.3 % (0.0-1.0); HEMATOCRIT 46.8 % (37.0-47.0); HEMOGLOBIN 15.9 g/dL (12.0-16.0); IMMATURE GRAN ABSOLUTE AUTO 0.09 K/uL (0.00-0.05); IMMATURE GRAN PERCENT AUTO 0.5 % (0.0-0.4); LYMPHOCYTES ABSOLUTE AUTO 1.68 K/uL (1.00-4.80); LYMPHOCYTES PERCENT AUTO 9.7 % (24.0-44.0); MEAN CORPUSCULAR HEMOGLOBIN 27.5 pg (28.0-32.0); MEAN PLATELET VOLUME 9.5 fL (9.4-12.3); MONOCYTES ABSOLUTE AUTO 0.56 K/uL (0.00-0.80); MONOCYTES PERCENT AUTO 3.2 % (0.0-8.0); NEUTROPHILS ABSOLUTE AUTO 14.94 K/uL (1.80-7.70); NEUTROPHILS PERCENT AUTO 86.3 % (41.0-71.0); PLATELET COUNT,PLT 384 K/uL (150-400); RED BLOOD CELL COUNT 5.78 M/uL (4.10-5.30); WHITE BLOOD CELL COUNT,WBC 17.33 K/uL (3.9-11.3)
[2024-01-09 11:18] LABS: APPEARANCE,URINE SLT CLOUDY; BILIRUBIN,URINE NEGATIVE (NEGATIVE); COLOR,URINE YELLOW; GLUCOSE,URINE >=1000 mg/dL (NEGATIVE); KETONES,URINE 40 mg/dL (NEGATIVE); LEUKOCYTE ESTERASE,URINE NEGATIVE (NEGATIVE); NITRITE,URINE NEGATIVE (NEGATIVE); OCCULT BLOOD,URINE NEGATIVE (NEGATIVE); PROTEIN,URINE 30 mg/dL (NEGATIVE); UROBILINOGEN,URINE 0.2 EU/dL (<2.0)
[2024-01-09 11:24] LABS: A/G RATIO 0.9 (0.9-1.6); ALBUMIN 4.3 g/dL (3.4-5.0); BILIRUBIN TOTAL 0.6 mg/dL (0.2-1.0); CALCIUM 10.2 mg/dL (8.5-10.1); CARBON DIOXIDE,CO2 20.3 mmol/L (21.0-32.0); CREATININE 1.2 mg/dL (0.6-1.0); EST CRCL DRUG DOSING (CG) 53.27 mL/min; MAGNESIUM 1.7 mg/dL (1.8-2.4); PHOSPHORUS 3.2 mg/dL (2.6-4.7)
[2024-01-09 11:28] LABS: BACTERIA,URINE FEW (NEGATIVE); EPITHELIAL CELLS,URINE MODERATE (NONE-FEW); HYALINE CASTS,URINE 0-1 (0-2/LPF); RBC,URINE 0-2 (0-2/HPF); WBC,URINE 0-4 (0-5/HPF)
[2024-01-09] MEDS: Magnesium Sulfate/Water Premix 2 GM in Premix Bag 1 BAG IV STA (11:43)
== END 2024-01-09 13:41 | disposition home or self-care (01) ==
LOC: MW.ED 10:10
DX: F50.89 Other specified eating disorder (principal); F41.9 Anxiety disorder, unspecified; I10 Essential (primary) hypertension; E11.9 Type 2 diabetes mellitus without complications; Z91.148 Patient's other noncompliance with medication regimen for other reason; Z90.49 Acquired absence of other specified parts of digestive tract; Z88.0 Allergy status to penicillin; Z88.6 Allergy status to analgesic agent; Z68.41 Body mass index [BMI] 40.0-44.9, adult; Z75.8 Other problems related to medical facilities and other health care
CPT/HCPCS: 36415; 80053; 81001; 82009; 82803; 83690; 83735; 84100; 84484; 84703; 85025; 93005; 96361; 96365; 96375; 99284; A9270; J1790; J3475; J7030; 93010; 99285

== ENCOUNTER 2024-04-14 15:43 | Observation (INO) | payer SELFPAY ==
[2024-04-14 16:17] LABS: BASOPHILS ABSOLUTE AUTO 0.05 K/uL (0.00-0.20); BASOPHILS PERCENT AUTO 0.5 % (0.0-1.0); EOSINOPHILS ABSOLUTE AUTO 0.19 K/uL (0.00-0.45); EOSINOPHILS PERCENT AUTO 1.7 % (0.0-6.0); HEMATOCRIT 42.1 % (37.0-47.0); HEMOGLOBIN 14.1 g/dL (12.0-16.0); IMMATURE GRAN ABSOLUTE AUTO 0.04 K/uL (0.00-0.05); IMMATURE GRAN PERCENT AUTO 0.4 % (0.0-0.4); LYMPHOCYTES ABSOLUTE AUTO 2.28 K/uL (1.00-4.80); LYMPHOCYTES PERCENT AUTO 20.8 % (24.0-44.0); MEAN CORPUSCULAR HEMOGLOBIN 27.2 pg (28.0-32.0); MEAN CORPUSCULAR HGB CONC 33.5 g/dL (32.0-36.0); MEAN CORPUSCULAR VOLUME 81.1 fL (83.0-99.0); MEAN PLATELET VOLUME 9.1 fL (9.4-12.3); MONOCYTES ABSOLUTE AUTO 0.51 K/uL (0.00-0.80); MONOCYTES PERCENT AUTO 4.6 % (0.0-8.0); PLATELET COUNT,PLT 360 K/uL (150-400); RED BLOOD CELL COUNT 5.19 M/uL (4.10-5.30); WHITE BLOOD CELL COUNT,WBC 10.97 K/uL (3.9-11.3)
[2024-04-14 16:39] LABS: INR 0.96 (0.86-1.11); PTT,PARTIAL THROMBOPLSTIN TIME 26.8 SEC (23.9-30.7)
[2024-04-14 16:44] LABS: BLOOD UREA NITROGEN,BUN 9 mg/dL (7.0-18.0); CALCIUM 9.1 mg/dL (8.5-10.1); CARBON DIOXIDE,CO2 26.4 mmol/L (21.0-32.0); CHLORIDE,CL 100 mmol/L (98-107); CREATININE 0.8 mg/dL (0.6-1.0); EST CRCL DRUG DOSING (CG) 79.91 mL/min; ETHANOL BLOOD MEDICAL <3 mg/dL; GLUCOSE RANDOM 353 mg/dL (74-106); POTASSIUM,K 4.2 mmol/L (3.5-5.1); SODIUM,NA 134 mmol/L (136-145)
[2024-04-14 16:57] LABS: ESTIMATED GFR 93 mL/min (>60)
[2024-04-14] MEDS: Iopamidol 755 MG/ML 500 ML Multipack Bottle IVPUSH STA (18:24)
[2024-04-14 19:19] LABS: APPEARANCE,URINE CLEAR; BILIRUBIN,URINE NEGATIVE (NEGATIVE); COLOR,URINE YELLOW; GLUCOSE,URINE >=1000 mg/dL (NEGATIVE); KETONES,URINE NEGATIVE (NEGATIVE); LEUKOCYTE ESTERASE,URINE NEGATIVE (NEGATIVE); NITRITE,URINE NEGATIVE (NEGATIVE); OCCULT BLOOD,URINE LARGE (NEGATIVE); PROTEIN,URINE TRACE mg/dL (NEGATIVE); UROBILINOGEN,URINE 0.2 EU/dL (<2.0)
[2024-04-14 19:26] LABS: BACTERIA,URINE NOT SEEN (NEGATIVE); SQUAMOUS EPITHELIAL CELLS,UR RARE; WBC,URINE 0-1 (0-5/HPF)
[2024-04-14 19:30] LABS: AMPHETAMINES SCREEN, URINE NEGATIVE (CUTOFF=500); BARBITURATE SCREEN,URINE NEGATIVE (CUTOFF=200); BENZODIAZEPINES SCREEN,URINE NEGATIVE (CUTOFF=150); BUPRENORPHINE SCREEN,URINE NEGATIVE (CUTOFF=10); METHADONE SCREEN, URINE NEGATIVE (CUTOFF=200); METHAMPHETAMINES SCREEN, URINE NEGATIVE (CUTOFF=500); OXYCODONE SCREEN,URINE NEGATIVE (CUT0FF=100); PCP SCREEN,URINE NEGATIVE (CUTOFF=25); THC SCREEN,URINE 20 NG/ML PRESUMPTIVE POSITIVE (CUTOFF=50)
[2024-04-14] MEDS: Labetalol 100 MG/20 ML MDV IVPUSH ONE (21:25)
[2024-04-14] MEDS: Aspirin 81 MG Tab.Chew PO ONE (21:37)
[2024-04-14] MEDS: Clopidogrel 75 MG Tab PO ONE (21:37)
[2024-04-14] MEDS ORDERED: Ondansetron 4 MG/2 ML SDV IVPUSH PRN (22:10)
[2024-04-14] MEDS ORDERED: Glucagon,Human Recombinant 1 MG Vial IM PRN (22:10)
[2024-04-14] MEDS ORDERED: Polyethylene Glycol 3350 Powder 17 GM Packet PO PRN (22:10)
[2024-04-14] MEDS ORDERED: Acetaminophen 650 MG Supp RECTAL PRN (22:10)
[2024-04-14] MEDS ORDERED: 50% Dextrose in Water 50 ML Syringe IVPUSH PRN (22:10)
[2024-04-14] MEDS ORDERED: Melatonin 3 MG Tab PO PRN (22:10)
[2024-04-14] MEDS ORDERED: Labetalol 100 MG/20 ML MDV IVPUSH SCH (23:45)
[2024-04-14] MEDS: Lisinopril 10 MG Tab PO SCH (23:50)
[2024-04-14] MEDS: Insulin Aspart 100 Units/ML 3 ML Pen SUBCUT STA (23:51)
[2024-04-14] MEDS ORDERED: Labetalol 100 MG/20 ML MDV IVPUSH PRN (23:56)
[2024-04-15] MEDS: Insulin Aspart 100 Units/ML 3 ML Pen SUBCUT STA (02:16)
[2024-04-15 05:41] LABS: BASOPHILS ABSOLUTE AUTO 0.05 K/uL (0.00-0.20); BASOPHILS PERCENT AUTO 0.5 % (0.0-1.0); EOSINOPHILS ABSOLUTE AUTO 0.35 K/uL (0.00-0.45); EOSINOPHILS PERCENT AUTO 3.3 % (0.0-6.0); HEMATOCRIT 40.8 % (37.0-47.0); HEMOGLOBIN 13.3 g/dL (12.0-16.0); IMMATURE GRAN ABSOLUTE AUTO 0.04 K/uL (0.00-0.05); IMMATURE GRAN PERCENT AUTO 0.4 % (0.0-0.4); LYMPHOCYTES ABSOLUTE AUTO 3.02 K/uL (1.00-4.80); LYMPHOCYTES PERCENT AUTO 28.1 % (24.0-44.0); MEAN CORPUSCULAR HEMOGLOBIN 26.9 pg (28.0-32.0); MEAN CORPUSCULAR HGB CONC 32.6 g/dL (32.0-36.0); MEAN CORPUSCULAR VOLUME 82.6 fL (83.0-99.0); MEAN PLATELET VOLUME 9.5 fL (9.4-12.3); MONOCYTES ABSOLUTE AUTO 0.75 K/uL (0.00-0.80); NEUTROPHILS ABSOLUTE AUTO 6.55 K/uL (1.80-7.70); NEUTROPHILS PERCENT AUTO 60.7 % (41.0-71.0); PLATELET COUNT,PLT 320 K/uL (150-400); RED BLOOD CELL COUNT 4.94 M/uL (4.10-5.30); WHITE BLOOD CELL COUNT,WBC 10.76 K/uL (3.9-11.3)
[2024-04-15 05:59] LABS: HEMOGLOBIN A1C 12.1 %
[2024-04-15 06:35] LABS: CALCIUM 8.3 mg/dL (8.5-10.1); CARBON DIOXIDE,CO2 27.9 mmol/L (21.0-32.0); CREATININE 0.7 mg/dL (0.6-1.0); EST CRCL DRUG DOSING (CG) 91.32 mL/min; MAGNESIUM 1.8 mg/dL (1.8-2.4); POTASSIUM,K 3.7 mmol/L (3.5-5.1); TSH ULTRASENSITIVE 0.36 uIU/mL (0.36-3.74)
[2024-04-15] MEDS: Insulin Aspart 100 Units/ML 3 ML Pen SUBCUT SCH (07:44)
[2024-04-15] MEDS: Gadobenate Dimeglumine 529 MG/ML 20 ML SDV IVPUSH ONE (08:33)
[2024-04-15] MEDS: diphenhydrAMINE 50 MG/ML SDV ONE (09:27)
[2024-04-15] MEDS: Ondansetron 4 MG/2 ML SDV ONE (09:27)
[2024-04-15] MEDS: Aspirin 81 MG Tab.Chew PO SCH (09:27)
[2024-04-15] MEDS: Sodium Chloride 0.9% 1,000 ML IV ONE (09:27)
[2024-04-15] MEDS: methylPREDNISolone Sodium Succinate 125 MG/2 ML SDV ONE (09:27)
[2024-04-15] MEDS: Albuterol/Ipratropium 3.0-0.5 MG/3 ML Neb Soln ONE (09:30)
[2024-04-15 09:32] LABS: PH,VENOUS 7.4 (7.31-7.41)
[2024-04-15] MEDS: Clopidogrel 75 MG Tab PO SCH (10:10)
[2024-04-15] MEDS: Famotidine 20 MG Tab PO SCH (10:11)
[2024-04-15] MEDS: Insulin Glargine,Hum.Rec.Anlog 100 UNIT/ML 3 ML Pen SUBCUT ONE ×2 (13:32→20:43)
[2024-04-15] MEDS ORDERED: Glucagon,Human Recombinant 1 MG Vial IM PRN (14:50)
[2024-04-15] MEDS ORDERED: 50% Dextrose in Water 50 ML Syringe IVPUSH PRN (14:50)
[2024-04-15] MEDS: Insulin Regular, Human 100 Units/ML 10 ML Vial IVPUSH ONE (15:29)
[2024-04-15] MEDS: Insulin Regular, Human 100 Units/ML 10 ML Vial SUBCUT ONE (15:30)
[2024-04-15] MEDS: Insulin Glargine,Hum.Rec.Anlog 100 UNIT/ML 3 ML Pen SUBCUT SCH (20:03)
[2024-04-15] MEDS ORDERED: Insulin Glargine,Hum.Rec.Anlog 100 UNIT/ML 3 ML Pen SUBCUT SCH (21:00)
[2024-04-16] MEDS: Acetaminophen 325 MG Tab PO PRN (00:28)
[2024-04-16 05:52] LABS: BASOPHILS ABSOLUTE AUTO 0.04 K/uL (0.00-0.20); BASOPHILS PERCENT AUTO 0.2 % (0.0-1.0); EOSINOPHILS ABSOLUTE AUTO 0.01 K/uL (0.00-0.45); HEMATOCRIT 40.2 % (37.0-47.0); HEMOGLOBIN 13.3 g/dL (12.0-16.0); IMMATURE GRAN ABSOLUTE AUTO 0.12 K/uL (0.00-0.05); IMMATURE GRAN PERCENT AUTO 0.5 % (0.0-0.4); LYMPHOCYTES ABSOLUTE AUTO 2.48 K/uL (1.00-4.80); LYMPHOCYTES PERCENT AUTO 10.7 % (24.0-44.0); MEAN CORPUSCULAR HEMOGLOBIN 27.1 pg (28.0-32.0); MEAN CORPUSCULAR HGB CONC 33.1 g/dL (32.0-36.0); MEAN PLATELET VOLUME 9.3 fL (9.4-12.3); MONOCYTES ABSOLUTE AUTO 0.89 K/uL (0.00-0.80); MONOCYTES PERCENT AUTO 3.9 % (0.0-8.0); NEUTROPHILS ABSOLUTE AUTO 19.53 K/uL (1.80-7.70); NEUTROPHILS PERCENT AUTO 84.7 % (41.0-71.0); PLATELET COUNT,PLT 367 K/uL (150-400); WHITE BLOOD CELL COUNT,WBC 23.07 K/uL (3.9-11.3)
[2024-04-16 06:20] LABS: A/G RATIO 0.8 (0.9-1.6); ALBUMIN 3.1 g/dL (3.4-5.0); BILIRUBIN TOTAL 0.3 mg/dL (0.2-1.0); CALCIUM 8.7 mg/dL (8.5-10.1); CARBON DIOXIDE,CO2 26.4 mmol/L (21.0-32.0); CREATININE 0.8 mg/dL (0.6-1.0); EST CRCL DRUG DOSING (CG) 79.91 mL/min; MAGNESIUM 1.9 mg/dL (1.8-2.4)
[2024-04-16] MEDS ORDERED: Insulin Glargine,Hum.Rec.Anlog 100 UNIT/ML 3 ML Pen SUBCUT SCH (21:00)
== END 2024-04-16 12:11 | disposition home or self-care (01) ==
LOC: MW.ED 15:43 → MW.MS 21:29 → MW.ICU 04-15 09:18
PROVIDERS: ADMIT Family Medicine; ATTEND Family Medicine
DX: R20.2 Paresthesia of skin (principal); E11.9 Type 2 diabetes mellitus without complications; I10 Essential (primary) hypertension; E78.00 Pure hypercholesterolemia, unspecified; Z79.4 Long term (current) use of insulin; Z79.899 Other long term (current) drug therapy; Z88.0 Allergy status to penicillin; Z88.8 Allergy status to other drugs, medicaments and biological substances
CPT/HCPCS: 36415; 70496; 70498; 70551; 80048; 80053; 80061; 80305; 80307; 81001; 82607; 82803; 82947; 83036; 83735; 84443; 84484; 85025; 85610; 85730; 93005; 93306; 94640; 96374; 99285; A9270; A9577; J1200; J1815; J1920; J2405; J2919; J7030; Q9967; 96361; G0378; J7620-GY

== ENCOUNTER 2024-09-09 16:15 | Emergency (ER) | payer SELFPAY ==
[2024-09-09 17:41] LABS: BASOPHILS ABSOLUTE AUTO 0.05 K/uL (0.00-0.20); BASOPHILS PERCENT AUTO 0.3 % (0.0-1.0); EOSINOPHILS ABSOLUTE AUTO 0.04 K/uL (0.00-0.45); EOSINOPHILS PERCENT AUTO 0.2 % (0.0-6.0); HEMATOCRIT 45.4 % (37.0-47.0); HEMOGLOBIN 15.7 g/dL (12.0-16.0); IMMATURE GRAN ABSOLUTE AUTO 0.08 K/uL (0.00-0.05); IMMATURE GRAN PERCENT AUTO 0.5 % (0.0-0.4); LYMPHOCYTES ABSOLUTE AUTO 2.82 K/uL (1.00-4.80); LYMPHOCYTES PERCENT AUTO 16.4 % (24.0-44.0); MEAN CORPUSCULAR HGB CONC 34.6 g/dL (32.0-36.0); MEAN CORPUSCULAR VOLUME 81.1 fL (83.0-99.0); MEAN PLATELET VOLUME 9.7 fL (9.4-12.3); MONOCYTES ABSOLUTE AUTO 0.85 K/uL (0.00-0.80); MONOCYTES PERCENT AUTO 4.9 % (0.0-8.0); NEUTROPHILS ABSOLUTE AUTO 13.39 K/uL (1.80-7.70); NEUTROPHILS PERCENT AUTO 77.7 % (41.0-71.0); PLATELET COUNT,PLT 346 K/uL (150-400); WHITE BLOOD CELL COUNT,WBC 17.23 K/uL (3.9-11.3)
[2024-09-09 17:52] LABS: A/G RATIO 0.9 (0.9-1.6); ALBUMIN 3.7 g/dL (3.4-5.0); BILIRUBIN TOTAL 0.6 mg/dL (0.2-1.0); CALCIUM 9.1 mg/dL (8.5-10.1); CARBON DIOXIDE,CO2 25.4 mmol/L (21.0-32.0); CREATININE 0.9 mg/dL (0.6-1.0); EST CRCL DRUG DOSING (CG) 71.03 mL/min; MAGNESIUM 1.6 mg/dL (1.8-2.4); POTASSIUM,K 3.6 mmol/L (3.5-5.1)
[2024-09-09] MEDS: Dicyclomine 10 MG Cap PO ONE (17:55)
[2024-09-09] MEDS: Sodium Chloride 0.9% 1,000 ML IV ONE (17:55)
[2024-09-09] MEDS: Ondansetron 4 MG/2 ML SDV IVPUSH ONE (17:56)
[2024-09-09] MEDS: Ketorolac 30 MG/ML SDV IVPUSH ONE (17:57)
[2024-09-09 18:53] LABS: COLOR,URINE YELLOW; GLUCOSE,URINE >=1000 mg/dL (NEGATIVE); KETONES,URINE 15 mg/dL (NEGATIVE); LEUKOCYTE ESTERASE,URINE NEGATIVE (NEGATIVE); NITRITE,URINE NEGATIVE (NEGATIVE); OCCULT BLOOD,URINE NEGATIVE (NEGATIVE); PROTEIN,URINE 30 mg/dL (NEGATIVE)
[2024-09-09 19:08] LABS: APPEARANCE,URINE HAZY; BILIRUBIN,URINE MODERATE (NEGATIVE)
[2024-09-09 19:09] LABS: BACTERIA,URINE FEW (NEGATIVE); EPITHELIAL CELLS,URINE FEW (NONE-FEW); MUCUS,URINE RARE (NONE-MOD); RBC,URINE 0-1 (0-2/HPF); WBC,URINE 0-1 (0-5/HPF)
== END 2024-09-09 19:46 | disposition home or self-care (01) ==
LOC: MW.ED 16:15
DX: A08.4 Viral intestinal infection, unspecified (principal); D72.829 Elevated white blood cell count, unspecified; R09.81 Nasal congestion; E78.00 Pure hypercholesterolemia, unspecified; I10 Essential (primary) hypertension; J45.909 Unspecified asthma, uncomplicated; E11.9 Type 2 diabetes mellitus without complications; Z91.041 Radiographic dye allergy status; Z75.3 Unavailability and inaccessibility of health-care facilities; Z88.0 Allergy status to penicillin; Z88.8 Allergy status to other drugs, medicaments and biological substances; Z79.4 Long term (current) use of insulin; Z79.899 Other long term (current) drug therapy
CPT/HCPCS: 36415; 80053; 81001; 83690; 83735; 85025; 96361; 96374; 96375; 99284; A9270; J1885; J2405; J7030; 99283

== ENCOUNTER 2025-01-24 16:30 | Emergency (ER) | payer SELFPAY | END 2025-01-24 17:57 | disposition left against medical advice (07) | LOC: MW.ED 16:30 | DX: Z53.21 Procedure and treatment not carried out due to patient leaving prior to being seen by health care provider (principal) ==